=== PATIENT | female | born 1990 ===

== ENCOUNTER 2024-05-30 18:36 | Inpatient (IN) | payer MEDICARE, MEDICAID ==
[2024-05-31] MEDS ORDERED: NICOTINE 14MG/24HR PATCH TRANSDERM ONE (09:02)
[2024-05-31] MEDS ORDERED: ESCITALOPRAM 10 MG TAB ONE (18:25)
[2024-05-31] MEDS ORDERED: busPIRone HCl 10 MG TAB ONE (19:56)
[2024-05-31] MEDS ORDERED: LITHIUM CARBONATE 300 MG CAP ONE (19:56)
[2024-06-01] MEDS ORDERED: busPIRone HCl 10 MG TAB ONE ×2 (07:53→19:53)
[2024-06-01] MEDS ORDERED: ESCITALOPRAM 10 MG TAB ONE (07:54)
[2024-06-01] MEDS ORDERED: LITHIUM CARBONATE 300 MG CAP ONE (19:53)
[2024-06-03] MEDS ORDERED: LITHIUM CARBONATE 150 MG CAP ONE (14:18)
[2024-06-03] MEDS ORDERED: traMADol 50 MG TAB ONE (21:13)
[2024-06-04] MEDS ORDERED: LITHIUM CARBONATE 150 MG CAP ONE (08:18)
[2024-06-04] MEDS ORDERED: traZODone HCL 100 MG TAB ONE (20:46)
[2024-06-05] MEDS ORDERED: LITHIUM CARBONATE 150 MG CAP ONE (08:09)
[2024-06-05] MEDS ORDERED: NICOTINE 14MG/24HR PATCH TRANSDERM ONE (08:09)
== END 2024-06-05 14:35 | disposition home or self-care (01) | DRG 885 ==
LOC: EC 18:36 → UNDOADMIN 05-31 03:45 → DISRECOVER 05-31 03:45 → 3MHU 05-31 03:50 → UNDODISIN 06-05 14:35
PROVIDERS: ADMIT Psychiatry & Neurology Psychiatry; ATTEND Psychiatry & Neurology Psychiatry
DX: F39 Unspecified mood [affective] disorder (principal); R45.851 Suicidal ideations; F43.10 Post-traumatic stress disorder, unspecified; F15.10 Other stimulant abuse, uncomplicated; F14.10 Cocaine abuse, uncomplicated; F12.10 Cannabis abuse, uncomplicated; Z71.51 Drug abuse counseling and surveillance of drug abuser
CPT/HCPCS: 82075